=== PATIENT | male | born 1945 | race Caucasian/White ===

== ENCOUNTER 2018-01-16 10:10 | Emergency (ER) | payer MEDICARE, BC ==
[2018-01-16] MEDS ORDERED: Labetalol 20 MG/4 ML Syringe IVPUSH ONE (10:43)
[2018-01-16 11:01] LABS: ANION GAP 17.1; CHLORIDE,CL 101 mmol/L (101-111); SODIUM,NA 136 mmol/L (135-145)
--- NOTE | 2018-01-16 11:40 | EDM.PDOC ---
ED HPI GENERAL MEDICAL PROBLEM - General Chief Complaint: Neurological Problem Stated Complaint: UNRESPONSIVE Time Seen by Provider: 01/16/18 10:20 - History of Present Illness INITIAL COMMENTS - FREE TEXT/NARRATIVE: Stroke code Yenni is a 72-year-old man who was rushed to the hospital today by his family, after he developed weakness at home. They state that just after 9:30 this morning, he suddenly told him that he was having trouble moving his left leg. He told them "I need to get to the hospital now". They were barely able to get him into the car because of his developing weakness. By the time they got even a few miles down the road, he was unable to speak with them, and was not responding to commands. They stated he was still looking around with his eyes open. As he arrived to the ER here, we had a very difficult time getting him out of the car, he was not able to follow commands, we had to basically team lift him from the car seat. He is spontaneously moving his left arm and leg, but not moving his right side whatsoever. As we got him onto a gurney, we got him directly to the CT scanner for a noncontrast CT of the head. After getting him back down to the ER, initial neuro evaluation shows that he is unable to follow commands. He is able to track me with his eyes towards the left side but really not towards the right side whatsoever. He does have spontaneous movements of his left arm and leg, but no movement of his right arm and leg. Initial vital signs were stable, with a heart rate of 85, and a blood pressure 192/102. Sylvain Lauren was activated for stroke code. They were able to get me into contact with an on-call neurologist at [facility] in [place] immediately. After I relayed his exam to the neurologist, neurologist indicated that we need to get his blood pressure under 185 systolically in order to make him candidate for TPA administration. He was therefore given 5 mg of IV labetalol, which lowered his systolic blood pressure to 174. TPA bolus dose was then given, and the rate run at weight-based appropriate dose. He was immediately then set up for transport via air ambulance from here to [facility] in [place]. As the ambulance was packaging him up to get him ready for transport, he began to be able to follow commands somewhat. He was able to squeeze nurse's hands with both his left and his right hand, right hand being much weaker than the left. He was able to smile when communicated with as he left. - Related Data Allergies Allergy/AdvReac Type Severity Reaction Status Date / Time No Known Allergies Allergy Verified 01/16/18 11:20 Home Meds: Home Meds Albuterol [Ventolin HFA] 2 puff INH DAILY PRN 01/16/18 [History] Past Medical History - Past Health History Medical/Surgical History: Denies Medical/Surgical History Social & Family History - Tobacco Use Smoking Status *Q: Never Smoker - Caffeine Use Caffeine Use: Reports: Soda - Recreational Drug Use Recreational Drug Use: No ED ROS GENERAL - Review of Systems Review Of Systems: Unable To Obtain ED EXAM, NEURO - Physical Exam Exam: See Below Text/Narrative:: Gen.:Yenni is a 72-year-old man who cannot communicate with me at this time but is in no signs of respiratory or cardiac distress Lungs: Clear to auscultation throughout Heart: Regular rate and rhythm, he does have an occasional PVC EKG shows normal sinus rhythm with a rate between 80 and 85, he has an occasional PVC every 5-6 beats, but there is no pattern to this Course - Vital Signs Last Recorded V/S: Last Vital Signs Temp 36.1 C 01/16/18 10:47 Pulse 82 01/16/18 10:47 Resp BP 180/82 H 01/16/18 10:47 Pulse Ox 100 01/16/18 10:47 - Orders/Labs/Meds Orders: Active Orders 24 hr Category Date Time Status EKG 12 Lead [EKG Documentation Completion] [RC] STAT Care 01/16/18 10:33 Active Head wo Cont [CT] Urgent Exams 01/16/18 10:23 Taken Labs: Laboratory Tests 01/16/18 01/16/18 01/16/18 Range/Units 10:25 10:29 10:29 WBC 4.7 L (5.0-10.0) 10^3/uL RBC 4.45 L (4.6-6.2) 10^6/uL Hgb 15.8 (14.0-18.0) g/dL Hct 43.6 (40.0-54.0) % MCV 98.0 (80-100) fL MCH 35.5 H (27.0-34.0) pg MCHC 36.2 H (33.0-35.0) g/dL Plt Count 147 L (150-450) 10^3/uL Neut % (Auto) 59.7 (42.2-75.2) % Lymph % (Auto) 24.4 (20.5-50.1) % [place] % (Auto) 14.0 H (2-8) % Eos % (Auto) 1.5 (1.0-3.0) % Baso % (Auto) 0.4 (0.0-1.0) % PT 10.1 (9.0-12.0) SEC INR 1.0 (0.9-1.2) Sodium (135-145) mmol/L Potassium (3.6-5.0) mmol/L Chloride (101-111) mmol/L Carbon Dioxide (21.0-31.0) mmol/L Anion Gap BUN (7-18) mg/dL Creatinine (0.6-1.3) mg/dL Est Cr Clr Drug Dosing Estimated GFR (MDRD) BUN/Creatinine Ratio Glucose (74-105) mg/dL POC Glucose 112 H (83-110) mg/dl Calcium (8.4-10.2) mg/dl Total Bilirubin (0.2-1.0) mg/dL AST (10-42) IU/L ALT (10-60) IU/L Alkaline Phosphatase (42-121) IU/L Total Protein (6.7-8.2) g/dl Albumin (3.2-5.5) g/dl Globulin Albumin/Globulin Ratio Urine Color (YELLOW) Urine Appearance (CLEAR) Urine pH (5.0-9.0) Ur Specific [place] (1.005-1.030) Urine Protein (NEGATIVE) Urine Glucose (UA) (NEGATIVE) Urine Ketones (NEGATIVE) Urine Occult Blood (NEGATIVE) Urine Nitrite (NEGATIVE) Urine Bilirubin (NEGATIVE) Urine Urobilinogen (0.2-1.0) mg/dL Ur Leukocyte Esterase (NEGATIVE) Urine RBC /HPF Urine WBC (0-5/HPF) /HPF Ur Epithelial Cells /HPF Urine Mucus /LPF 01/16/18 01/16/18 Range/Units 10:29 10:38 WBC (5.0-10.0) 10^3/uL RBC (4.6-6.2) 10^6/uL Hgb (14.0-18.0) g/dL Hct (40.0-54.0) % MCV (80-100) fL MCH (27.0-34.0) pg MCHC (33.0-35.0) g/dL Plt Count (150-450) 10^3/uL Neut % (Auto) (42.2-75.2) % Lymph % (Auto) (20.5-50.1) % [place] % (Auto) (2-8) % Eos % (Auto) (1.0-3.0) % Baso % (Auto) (0.0-1.0) % PT (9.0-12.0) SEC INR (0.9-1.2) Sodium 136 (135-145) mmol/L Potassium 4.1 (3.6-5.0) mmol/L Chloride 101 (101-111) mmol/L Carbon Dioxide 22.0 (21.0-31.0) mmol/L Anion Gap 17.1 BUN 19 H (7-18) mg/dL Creatinine 1.1 (0.6-1.3) mg/dL Est Cr Clr Drug Dosing TNP Estimated GFR (MDRD) > 60 BUN/Creatinine Ratio 17.27 Glucose 129 H (74-105) mg/dL POC Glucose (83-110) mg/dl Calcium 9.1 (8.4-10.2) mg/dl Total Bilirubin 2.4 H (0.2-1.0) mg/dL AST 46 H (10-42) IU/L ALT 46 (10-60) IU/L Alkaline Phosphatase 56 (42-121) IU/L Total Protein 6.8 (6.7-8.2) g/dl Albumin 4.3 (3.2-5.5) g/dl Globulin 2.5 Albumin/Globulin Ratio 1.72 Urine Color Dark yellow (YELLOW) Urine Appearance Slightly cloudy (CLEAR) Urine pH 7.0 (5.0-9.0) Ur Specific [place] 1.015 (1.005-1.030) Urine Protein 30 H (NEGATIVE) Urine Glucose (UA) Negative (NEGATIVE) Urine Ketones Negative (NEGATIVE) Urine Occult Blood Trace-intact H (NEGATIVE) Urine Nitrite Negative (NEGATIVE) Urine Bilirubin Negative (NEGATIVE) Urine Urobilinogen 0.2 (0.2-1.0) mg/dL Ur Leukocyte Esterase Negative (NEGATIVE) Urine RBC 5-10 H /HPF Urine WBC 5-10 H (0-5/HPF) /HPF Ur Epithelial Cells Few /HPF Urine Mucus Few H /LPF Departure - Departure Time of Disposition: 11:30 Disposition: DC/Tfer to Acute Hospital 02 Condition: Fair Clinical Impression: Stroke Qualifiers: CVA mechanism: unspecified Qualified Code(s): I63.9 - Cerebral infarction, unspecified - Discharge Information Referrals: Yojana Le [facility] [Primary Care Provider] - - Problem List & Annotations (1) Stroke SNOMED Code(s): 922325457 Code(s): I63.9 - CEREBRAL INFARCTION, UNSPECIFIED Status: Acute Current Visit: Yes Annotation/Comment:: Severe stroke, with complete hemiplegia, and inability to follow commands, status post TPA administration Qualifiers: CVA mechanism: unspecified Qualified Code(s): I63.9 - Cerebral infarction, unspecified - My Orders Last 24 Hours: My Active Orders 01/16/18 10:23 Head wo Cont [CT] Urgent 01/16/18 10:33 EKG 12 Lead [EKG Documentation Completion] [RC] STAT - Assessment/Plan Last 24 Hours: My Active Orders 01/16/18 10:23 Head wo Cont [CT] Urgent 01/16/18 10:33 EKG 12 Lead [EKG Documentation Completion] [RC] STAT
[2018-01-16 13:19] VITALS: BP 184/110
--- NOTE | 2018-01-17 10:29 | EKG ---
01/16/2018- ALFREDO BELLAMY - This is a standard 12-lead EKG showing normal sinus rhythm, first-degree AV block, old anterolateral infarct. No significant ST-T changes. [facility] /[id number]
== END 2018-01-16 11:30 ==
LOC: DL.ED 10:10
DX: I63.9 Cerebral infarction, unspecified (principal); Z79.899 Other long term (current) drug therapy
CPT/HCPCS: 36415; 70450; 80053; 81001; 82962; 85025; 85610; 93005; 93010; 96365; 96375; 99285; J2997; J3490; 99284

== ENCOUNTER 2018-03-22 10:08 | Observation (INO) | payer MEDICARE, BC ==
--- NOTE | 2018-03-22 10:35 | EDM.PDOC ---
ED HPI GENERAL MEDICAL PROBLEM - General Chief Complaint: Respiratory Problem Stated Complaint: IN BY AMBULANCE Time Seen by Provider: 03/22/18 10:10 Source of Information: Reports: Patient, EMS, EMS Notes Reviewed, Provider (FRANK Rodriguez), RN, RN Notes Reviewed History Limitations: Reports: No Limitations - History of Present Illness INITIAL COMMENTS - FREE TEXT/NARRATIVE: Pt presents to the ER per [facility] with c/o increasing SOB. Patient states he had CABG x5 on 03-10-18. In the past few days he has grown increasingly more SOB and has developed swelling in the left lower leg, where grafting also took place. 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 Patient denies any further complaints including chest pain, N/V/D, fever, chills. Onset: Gradual Duration: Getting Worse, Heavy Location: Reports: Chest Associated Symptoms: Reports: Shortness of Breath midsternal Pain Score (Numeric/FACES): 5 - Related Data Allergies Allergy/AdvReac Type Severity Reaction Status Date / Time No Known Allergies Allergy Verified 03/22/18 17:57 Home Meds: Home Meds Albuterol [Ventolin HFA] 2 puff INH DAILY PRN 01/16/18 [History] Ascorbic Acid [Vitamin C] 1,000 mg PO BID 03/22/18 [History] Aspirin 81 mg PO DAILY 03/22/18 [History] Carvedilol 6.25 mg PO BID 03/22/18 [History] Cholecalciferol (Vitamin D3) [Vitamin D3] 1,000 units PO BID 03/22/18 [History] Docusate Sodium [Dok] 250 mg PO DAILY 03/22/18 [History] Fluticasone/Vilanterol [Breo Ellipta 200-25 MCG Inhalation Kit] 1 puff INH DAILY 03/22/18 [History] Furosemide [Lasix] 20 mg PO DAILY PRN tablet 03/22/18 [Rx] Hydrocodone/Acetaminophen [Hydrocodon-Acetaminophen 5-325] 1 tab PO Q4H PRN [History] Omeprazole 20 mg PO DAILY 03/22/18 [History] Rivaroxaban [Xarelto] 20 mg PO BEDTIME 03/22/18 [History] Tamsulosin HCl 0.4 mg PO DAILY 03/22/18 [History] atorvaSTATin [Lipitor] 40 mg PO DAILY 03/22/18 [History] Past Medical History - Past Health History Medical/Surgical History: Denies Medical/Surgical History Social & Family History - Caffeine Use Caffeine Use: Reports: Soda ED ROS GENERAL - Review of Systems Review Of Systems: ROS reveals no pertinent complaints other than HPI. ED EXAM, GENERAL - Physical Exam Exam: See Below Exam Limited By: No Limitations General Appearance: Alert, WD/WN, Mild Distress Eye Exam: Bilateral Eye: EOMI, Normal Inspection Ears: Normal External Exam, Hearing Grossly Normal Nose: Normal Inspection Throat/Mouth: Normal Inspection, Normal Voice, No Airway Compromise Head: Atraumatic, Normocephalic Neck: Normal Inspection, Supple, Non-Tender, Full Range of Motion Respiratory/Chest: Other (Lungs clear bilaterally except few fine crackles to the left base, mid sternal chest incision healing, but chest is tender to touch yet. Patient is having some mild respiratory distress, O2 sats 99% on 2L NC. ) Cardiovascular: Normal Peripheral Pulses, Regular Rate, Rhythm, No Gallop, No JVD, No Murmur, No Rub Peripheral Pulses: 1+: Dorsalis Pedis (L), Dorsalis Pedis (R), 2+: Radial (L), Radial (R) GI/Abdominal: Normal Bowel Sounds, Soft, Non-Tender, No Organomegaly, No Abnormal Bruit, Distended (Male) Exam: Deferred Rectal (Males) Exam: Deferred Back Exam: Normal Inspection, Decreased Range of Motion Extremities: Pedal Edema (left +2, right +1), Limited Range of Motion Neurological: Alert, Oriented, CN II-XII Intact, Normal Cognition, Normal Reflexes, No Motor/Sensory Deficits Psychiatric: Normal Affect, Normal Mood Skin Exam: Warm, Dry, Intact, Normal Color, No Rash Lymphatic: No Adenopathy EKG INTERPRETATION EKG Date: 03/22/18 Time: 10:10 Rhythm: Other (sinus tachycardia, first degree AV block) Rate (Beats/Min): 100 QRS: Wide Comparison: Change From Previous EKG Course - Vital Signs Last Recorded V/S: Last Vital Signs Temp 98.1 F 03/22/18 17:47 Pulse 99 05/22/18 17:47 Resp 20 03/22/18 17:47 BP 99/56 L 03/22/18 17:47 Pulse Ox 99 03/22/18 17:47 - Orders/Labs/Meds Orders: Active Orders 24 hr Category Date Time Status Patient Status [ADT] Routine ADT 03/22/18 19:00 Active EKG 12 Lead [EKG Documentation Completion] [RC] STAT Care 03/22/18 10:18 Active Oxygen Therapy [RC] PRN Care 03/22/18 19:00 Active Peripheral IV Care [RC] . DIRECTED Care 03/22/18 19:01 Active Up With Assistance [RC] ASDIRECTED Care 03/22/18 18:59 Active VTE/DVT Education [RC] PER UNIT ROUTINE Care 03/22/18 19:00 Active Vital Signs [RC] Q4H Care 03/22/18 19:00 Active Late Tray [DIET] Routine Diet 03/22/18 12:09 Active UA W/MICROSCOPIC [URIN] Stat Lab 03/22/18 15:18 Ordered Peripheral IV Insertion Adult [OM.PC] Routine Oth 03/22/18 18:59 Ordered Saline Lock Insert [OM.PC] Routine Oth 03/22/18 18:59 Ordered Resuscitation Status Routine Resus Stat 03/22/18 18:59 Ordered Labs: Laboratory Tests 03/22/18 03/22/18 03/22/18 Range/Units 10:33 10:33 15:18 WBC 8.8 (5.0-10.0) 10^3/uL RBC 3.54 L (4.6-6.2) 10^6/uL Hgb 11.1 L D (14.0-18.0) g/dL Hct 33.1 L (40.0-54.0) % MCV 93.5 D (80-100) fL MCH 31.4 (27.0-34.0) pg MCHC 33.5 (33.0-35.0) g/dL Plt Count 370 D (150-450) 10^3/uL Neut % (Auto) 75.1 (42.2-75.2) % Lymph % (Auto) 8.8 L (20.5-50.1) % [place] % (Auto) 11.9 H (2-8) % Eos % (Auto) 4.0 H (1.0-3.0) % Baso % (Auto) 0.2 (0.0-1.0) % Sodium 136 (135-145) mmol/L Potassium 4.4 (3.6-5.0) mmol/L Chloride 98 L (101-111) mmol/L Carbon Dioxide 27.0 (21.0-31.0) mmol/L Anion Gap 15.4 BUN 19 H (7-18) mg/dL Creatinine 1.3 (0.6-1.3) mg/dL Est Cr Clr Drug Dosing 49.43 mL/min Estimated GFR (MDRD) 55 BUN/Creatinine Ratio 14.61 Glucose 119 H (74-105) mg/dL Calcium 9.2 (8.4-10.2) mg/dl Total Bilirubin 1.4 H (0.2-1.0) mg/dL AST 23 (10-42) IU/L ALT 14 (10-60) IU/L Alkaline Phosphatase 66 (42-121) IU/L Troponin I < 0.02 (0.00-0.02) ng/ml B-Natriuretic Peptide 520 H (0-100) pg/ml Total Protein 7.0 (6.7-8.2) g/dl Albumin 3.8 (3.2-5.5) g/dl Globulin 3.2 Albumin/Globulin Ratio 1.19 Urine Color Yellow (YELLOW) Urine Appearance Clear (CLEAR) Urine pH 6.0 (5.0-9.0) Ur Specific [place] 1.015 (1.005-1.030) Urine Protein Negative (NEGATIVE) Urine Glucose (UA) Negative (NEGATIVE) Urine Ketones Negative (NEGATIVE) Urine Occult Blood Negative (NEGATIVE) Urine Nitrite Negative (NEGATIVE) Urine Bilirubin Negative (NEGATIVE) Urine Urobilinogen 0.2 (0.2-1.0) mg/dL Ur Leukocyte Esterase Negative (NEGATIVE) Urine RBC Not seen /HPF Urine WBC 0-5 (0-5/HPF) /HPF Ur Epithelial Cells Not seen /HPF Urine Bacteria Rare (0-FEW/HPF) /HPF Hyaline Casts Few H /LPF Urine Mucus Few H /LPF Meds: Medications Discontinued Medications Generic Name Dose Route Start Last Admin Trade Name Freq PRN Reason Stop Dose Admin Acetaminophen 650 mg 03/22/18 11:31 03/22/18 11:40 Tylenol PO 03/22/18 11:32 650 mg NOW ONE Administration Hydrocodone Bitart/Acetaminophen 1 tab 03/22/18 19:11 [place] 325-5 Mg PO Q4H PRN Pain Albuterol 0 gm 03/22/18 19:11 Proventil Hfa INH DAILY PRN Wheezing Ascorbic Acid 1,000 mg 03/22/18 21:00 Vitamin C PO BID [facility] Aspirin 81 mg 03/23/18 09:00 Aspirin PO DAILY [facility] Atorvastatin Calcium 40 mg 03/23/18 09:00 Lipitor PO DAILY [facility] Carvedilol 6.25 mg 03/22/18 21:00 Coreg PO BID [facility] Cholecalciferol 1,000 units 03/22/18 21:00 Vitamin D3 PO BID [facility] Furosemide 80 mg 03/22/18 13:27 03/22/18 14:45 Lasix IVPUSH 03/22/18 13:28 80 mg NOW ONE Administration Furosemide 20 mg 03/22/18 19:11 Lasix PO DAILY PRN Edema Heparin Sodium (Porcine) 5,000 units 03/22/18 22:00 Heparin Sodium SUBCUT Q8HR [facility] Iopamidol 100 ml 03/22/18 17:00 Isovue-300 (61%) IVPUSH 03/22/18 17:01 ONETIME ONE Iopamidol 100 ml 03/22/18 17:53 03/22/18 17:53 Isovue-370 (76%) IVPUSH 03/22/18 17:54 76 ml ONETIME ONE Administration Non-Formulary Medication 250 mg 03/23/18 09:00 Docusate Sodium [Dok] PO DAILY [facility] Non-Formulary Medication 1 puff 03/23/18 09:00 Fluticasone/Vilanterol [Breo Ellipta 200-25 Mcg Inhalation Kit] INH DAILY [facility] Omeprazole 20 mg 03/23/18 09:00 Omeprazole PO DAILY [facility] Rivaroxaban 20 mg 03/22/18 21:00 Xarelto PO BEDTIME [facility] Sodium Chloride 10 ml 03/22/18 18:59 Saline Flush FLUSH ASDIRECTED PRN Keep Vein Open Tamsulosin HCl 0.4 mg 03/23/18 09:00 Flomax PO DAILY [facility] - Radiology Interpretation Free Text/Narrative:: chest xray: Bibasilar dependent subpulmonic pleural effusions (accumulating on the right) Abnormally enlarged cardiac silhouette pericardial effusion? Cardiomyopathy? See rad report Departure - Departure Time of Disposition: 17:15 Disposition: Admitted As Inpatient 68 Clinical Impression: Pleural effusion, Shortness of breath - Discharge Information - My Orders Last 24 Hours: My Active Orders 03/22/18 10:18 EKG 12 Lead [EKG Documentation Completion] [RC] STAT 03/22/18 12:09 Late Tray [DIET] Routine 03/22/18 15:18 UA W/MICROSCOPIC [URIN] Stat - Assessment/Plan Last 24 Hours: My Active Orders 03/22/18 10:18 EKG 12 Lead [EKG Documentation Completion] [RC] STAT 03/22/18 12:09 Late Tray [DIET] Routine 03/22/18 15:18 UA W/MICROSCOPIC [URIN] Stat
--- NOTE | 2018-03-22 11:02 | CR ---
Clinical history: 72-year-old male sarcoidosis and chest pain stretching shortness of breath (cardiac bypass surgery 10 days ago both breasts. Interpretation: Abnormal exam. Bibasilar dependent subpulmonic pleural effusions (accumulating on the right) this patient with love otomy wires and abnormally enlarged cardiac silhouette (pericardial effusion? Cardiomyopathy?). No cephalization of vascular flow or signs of alveolar edema. No new lung mass or focal lobar infiltrate. No pneumothorax.
[2018-03-22 11:09] LABS: CHLORIDE,CL 98 mmol/L (101-111); SODIUM,NA 136 mmol/L (135-145)
[2018-03-22] MEDS ORDERED: Acetaminophen 325 MG Tab PO ONE (11:31)
[2018-03-22] MEDS ORDERED: Furosemide 40 MG/4 ML VIAL IVPUSH ONE (13:27)
[2018-03-22] MEDS ORDERED: Iopamidol 612 MG/ML 100 ML Bottle IVPUSH ONE (17:00)
[2018-03-22] MEDS ORDERED: Iopamidol 755 Mg/ML 100 ML Bottle IVPUSH ONE (17:53)
[2018-03-22 18:29] VITALS: BP 99/56
[2018-03-22] MEDS ORDERED: Sodium Chloride 0.9% 10 ML Syringe FLUSH PRN (18:59)
[2018-03-22] MEDS ORDERED: Acetaminophen/HYDROcodone 325-5 MG Tab PO PRN (19:11)
[2018-03-22] MEDS ORDERED: Furosemide 20 MG Tab PO PRN (19:11)
[2018-03-22] MEDS ORDERED: Albuterol 6.7 GM Inhaler INH PRN (19:11)
--- NOTE | 2018-03-22 19:19 | PCM.HP ---
H&P History of Present Illness - General Date of Service: 03/22/18 Admit Problem/Dx: Admission Diagnosis/Problem Admission Diagnosis/Problem Shortness of breath Source of Information: Patient - History of Present Illness Initial Comments - Free Text/Narative: The patient is a 72-year-old gentleman who presented the with shortness of breath The patient has a history of prior stroke, DVT, atrial fibrillation, recent bypass surgery about 10 days ago. The patient has been experiencing increasing shortness of breath for about 3-4 days. This is associated with leg swelling. No cough, no fever. - Related Data Allergies/Adverse Reactions: Allergies Allergy/AdvReac Type Severity Reaction Status Date / Time No Known Allergies Allergy Verified 03/22/18 17:57 Home Medications: Home Meds Albuterol [Ventolin HFA] 2 puff INH DAILY PRN 01/16/18 [History] Ascorbic Acid [Vitamin C] 1,000 mg PO BID 03/22/18 [History] Aspirin 81 mg PO DAILY 03/22/18 [History] Carvedilol 6.25 mg PO BID 03/22/18 [History] Cholecalciferol (Vitamin D3) [Vitamin D3] 1,000 units PO BID 03/22/18 [History] Docusate Sodium [Dok] 250 mg PO DAILY 03/22/18 [History] Fluticasone/Vilanterol [Breo Ellipta 200-25 MCG Inhalation Kit] 1 puff INH DAILY 03/22/18 [History] Furosemide [Lasix] 20 mg PO DAILY PRN 03/22/18 [History] Hydrocodone/Acetaminophen [Hydrocodon-Acetaminophen 5-325] 1 tab PO Q4H PRN [History] Omeprazole 20 mg PO DAILY 03/22/18 [History] Rivaroxaban [Xarelto] 20 mg PO BEDTIME 03/22/18 [History] Tamsulosin HCl 0.4 mg PO DAILY 03/22/18 [History] atorvaSTATin [Lipitor] 40 mg PO DAILY 03/22/18 [History] Past Medical History - Past Health History Medical/Surgical History: Denies Medical/Surgical History HEENT History: Reports: None Cardiovascular History: Reports: Blood Clots/VTE/DVT, CAD, Cardiomyopathy, Heart Failure, Hypertension, [place] Respiratory History: Reports: PE, Sleep Apnea, Other (See Below) Other Respiratory History: Sarcoidosis Gastrointestinal History: Reports: GERD Genitourinary History: Reports: BPH Musculoskeletal History: Reports: None Neurological History: Reports: CVA, Neuropathy, Peripheral Psychiatric History: Reports: Anxiety, Depression Endocrine/Metabolic History: Reports: None Hematologic History: Reports: None Immunologic History: Reports: None Oncologic (Cancer) History: Reports: None Dermatologic History: Reports: None - Infectious Disease History Infectious Disease History: Reports: None - Past Surgical History HEENT Surgical History: Reports: None Cardiovascular Surgical History: Reports: Coronary Artery Bypass Respiratory Surgical History: Reports: None GI Surgical History: Reports: None Male Surgical History: Reports: None Endocrine Surgical History: Reports: None Neurological Surgical History: Reports: None Musculoskeletal Surgical History: Reports: None Oncologic Surgical History: Reports: None Social & Family History - Family History Family Medical History: Noncontributory - Tobacco Use Smoking Status *Q: Never Smoker Second Hand Smoke Exposure: No - Caffeine Use Caffeine Use: Reports: Soda - Recreational Drug Use Recreational Drug Use: No H&P Review of Systems - Review of Systems: Review Of Systems: See Below General: Denies: Fever, Chills Pulmonary: Reports: Shortness of Breath. Denies: Wheezing Cardiovascular: Denies: Chest Pain, Palpitations Psychiatric: Denies: Confusion Exam - Exam Exam: See Below - Vital Signs Vital Signs: Last Vital Signs Temp 36.7 C 03/22/18 17:47 Pulse 99 03/22/18 17:47 Resp 20 03/22/18 17:47 BP 99/56 L 03/22/18 17:47 Pulse Ox 99 03/22/18 17:47 Weight: 98.43 kg - Exam General: Alert, Oriented Lungs: Clear to Auscultation, Normal Respiratory Effort Cardiovascular: Regular Rate, Regular Rhythm Extremities: Pedal Edema (Bilateral 1-2+) - Patient Data Lab Results Last 24 hrs: Laboratory Results - last 24 hr 03/22/18 03/22/18 03/22/18 Range/Units 10:33 10:33 15:18 WBC 8.8 (5.0-10.0) 10^3/uL RBC 3.54 L (4.6-6.2) 10^6/uL Hgb 11.1 L D (14.0-18.0) g/dL Hct 33.1 L (40.0-54.0) % MCV 93.5 D (80-100) fL MCH 31.4 (27.0-34.0) pg MCHC 33.5 (33.0-35.0) g/dL Plt Count 370 D (150-450) 10^3/uL Neut % (Auto) 75.1 (42.2-75.2) % Lymph % (Auto) 8.8 L (20.5-50.1) % [place] % (Auto) 11.9 H (2-8) % Eos % (Auto) 4.0 H (1.0-3.0) % Baso % (Auto) 0.2 (0.0-1.0) % Sodium 136 (135-145) mmol/L Potassium 4.4 (3.6-5.0) mmol/L Chloride 98 L (101-111) mmol/L Carbon Dioxide 27.0 (21.0-31.0) mmol/L Anion Gap 15.4 BUN 19 H (7-18) mg/dL Creatinine 1.3 (0.6-1.3) mg/dL Est Cr Clr Drug Dosing 49.43 mL/min Estimated GFR (MDRD) 55 BUN/Creatinine Ratio 14.61 Glucose 119 H (74-105) mg/dL Calcium 9.2 (8.4-10.2) mg/dl Total Bilirubin 1.4 H (0.2-1.0) mg/dL AST 23 (10-42) IU/L ALT 14 (10-60) IU/L Alkaline Phosphatase 66 (42-121) IU/L Troponin I < 0.02 (0.00-0.02) ng/ml B-Natriuretic Peptide 520 H (0-100) pg/ml Total Protein 7.0 (6.7-8.2) g/dl Albumin 3.8 (3.2-5.5) g/dl Globulin 3.2 Albumin/Globulin Ratio 1.19 Urine Color Yellow (YELLOW) Urine Appearance Clear (CLEAR) Urine pH 6.0 (5.0-9.0) Ur Specific [place] 1.015 (1.005-1.030) Urine Protein Negative (NEGATIVE) Urine Glucose (UA) Negative (NEGATIVE) Urine Ketones Negative (NEGATIVE) Urine Occult Blood Negative (NEGATIVE) Urine Nitrite Negative (NEGATIVE) Urine Bilirubin Negative (NEGATIVE) Urine Urobilinogen 0.2 (0.2-1.0) mg/dL Ur Leukocyte Esterase Negative (NEGATIVE) Urine RBC Not seen /HPF Urine WBC 0-5 (0-5/HPF) /HPF Ur Epithelial Cells Not seen /HPF Urine Bacteria Rare (0-FEW/HPF) /HPF Hyaline Casts Few H /LPF Urine Mucus Few H /LPF Result Diagrams: 03/22/18 10:33 03/22/18 10:33 Problem List Initiated/Reviewed/Updated: Yes Orders Last 24hrs: Active Orders 24 hr Category Date Time Status Patient Status [ADT] Routine ADT 03/22/18 19:00 Ordered EKG 12 Lead [EKG Documentation Completion] [RC] STAT Care 03/22/18 10:18 Active Oxygen Therapy [RC] PRN Care 03/22/18 19:00 Ordered Peripheral IV Care [RC] . DIRECTED Care 03/22/18 19:01 Ordered Up With Assistance [RC] ASDIRECTED Care 03/22/18 18:59 Ordered VTE/DVT Education [RC] PER UNIT ROUTINE Care 03/22/18 19:00 Ordered Vital Signs [RC] Q4H Care 03/22/18 19:00 Ordered Late Tray [DIET] Routine Diet 03/22/18 12:09 Active Regular Diet [DIET] Diet 03/22/18 Breakfast Ordered UA W/MICROSCOPIC [URIN] Stat Lab 03/22/18 15:18 Ordered Acetaminophen/HYDROcodone [[place] 325-5 MG] Med 03/22/18 19:11 Ordered 1 tab PO Q4H PRN Albuterol [Proventil HFA] Med 03/22/18 19:11 Ordered 2 puff INH DAILY PRN Ascorbic Acid [Vitamin C] Med 03/22/18 21:00 Ordered 1,000 mg PO BID Aspirin Med 03/23/18 09:00 Ordered 81 mg PO DAILY Carvedilol [Coreg] Med 03/22/18 21:00 Ordered 6.25 mg PO BID Cholecalciferol (Vitamin D3) [Vitamin D3] Med 03/22/18 21:00 Ordered 1,000 units PO BID Docusate Sodium [Dok] Med 03/23/18 09:00 Ordered 250 mg PO DAILY Fluticasone/Vilanterol [Breo Ellipta 200-25 MCG Med 03/23/18 09:00 Ordered Inhalation Kit] 1 puff INH DAILY Furosemide [Lasix] Med 03/22/18 19:11 Ordered 20 mg PO DAILY PRN Heparin Sodium Med 03/22/18 22:00 Ordered 5,000 units SUBCUT Q8HR Omeprazole Med 03/23/18 09:00 Ordered 20 mg PO DAILY Rivaroxaban [Xarelto] Med 03/22/18 21:00 Ordered 20 mg PO BEDTIME Sodium Chloride 0.9% [Saline Flush] Med 03/22/18 18:59 Ordered 10 ml FLUSH ASDIRECTED PRN Tamsulosin [Flomax] Med 03/23/18 09:00 Ordered 0.4 mg PO DAILY atorvaSTATin [Lipitor] Med 03/23/18 09:00 Ordered 40 mg PO DAILY Peripheral IV Insertion Adult [OM.PC] Routine Oth 03/22/18 18:59 Ordered Saline Lock Insert [OM.PC] Routine Oth 03/22/18 18:59 Ordered Resuscitation Status Routine Resus Stat 03/22/18 18:59 Ordered Medication Orders Heparin Sodium (Porcine) (Heparin Sodium) 5,000 units SUBCUT Q8HR JOHANNA Sodium Chloride (Saline Flush) 10 ml FLUSH ASDIRECTED PRN PRN Reason: Keep Vein Open Assessment/Plan Comment:: 72-year-old gentleman who presented with shortness of breath. On chest x-ray the patient appears to have from small effusion, enlarged pericardium. Concern is significant pericardial effusion. We'll admit the patient for observation, further workup. We will obtain CT of the chest. On its on telemetry, repeat troponins. Treat the patient for acute congestive heart failure. The patient received IV Lasix.
--- NOTE | 2018-03-22 19:29 | PCM.DCSUM1 ---
Discharge Summary - Hospital Course Free Text/Narrative:: 72-year-old gentleman who presented with shortness of breath. On chest x-ray the patient appears to have from small effusion, enlarged pericardium. Concern is significant pericardial effusion. CT showed no pulmonary embolism, it did show moderate to large pericardial effusion. I believe the patient would benefit from obtaining echocardiogram to evaluate for cardiac compromise with a moderate to large effusion. Echocardiogram is not available in this facility. Contacted sent for [facility] in [place]. We will transfer the patient by ambulance. Treat the patient for acute congestive heart failure. The patient received IV Lasix. - Discharge Data Discharge Date: 03/22/18 Discharge Disposition: DC/Tfer to Acute Hospital 02 Condition: Good - Patient Instructions Diet: Heart Healthy Diet Activity: As Tolerated - Discharge Plan Home Medications: Home Meds Albuterol [Ventolin HFA] 2 puff INH DAILY PRN 01/16/18 [History] Ascorbic Acid [Vitamin C] 1,000 mg PO BID 03/22/18 [History] Aspirin 81 mg PO DAILY 03/22/18 [History] Carvedilol 6.25 mg PO BID 03/22/18 [History] Cholecalciferol (Vitamin D3) [Vitamin D3] 1,000 units PO BID 03/22/18 [History] Docusate Sodium [Dok] 250 mg PO DAILY 03/22/18 [History] Fluticasone/Vilanterol [Breo Ellipta 200-25 MCG Inhalation Kit] 1 puff INH DAILY 03/22/18 [History] Furosemide [Lasix] 20 mg PO DAILY PRN tablet 03/22/18 [Rx] Hydrocodone/Acetaminophen [Hydrocodon-Acetaminophen 5-325] 1 tab PO Q4H PRN [History] Omeprazole 20 mg PO DAILY 03/22/18 [History] Rivaroxaban [Xarelto] 20 mg PO BEDTIME 03/22/18 [History] Tamsulosin HCl 0.4 mg PO DAILY 03/22/18 [History] atorvaSTATin [Lipitor] 40 mg PO DAILY 03/22/18 [History] - Discharge Summary/Plan Comment DC Time >30 min.: No - General Info Date of Service: 03/22/18 - Review of Systems General: Denies: Fever Pulmonary: Reports: Shortness of Breath Cardiovascular: Denies: Chest Pain Neurological: Denies: Confusion - Patient Data Vitals - Most Recent: Last Vital Signs Temp 36.7 C 03/22/18 17:47 Pulse 99 03/22/18 17:47 Resp 20 03/22/18 17:47 BP 99/56 L 03/22/18 17:47 Pulse Ox 99 03/22/18 17:47 Weight - Most Recent: 98.43 kg I&O - Last 24 hours: Intake & Output 03/22/18 03/22/18 03/22/18 06:59 14:59 22:59 Intake Total 555 Output Total 800 Balance -245 Lab Results - Last 24 hrs: Laboratory Results - last 24 hr 03/22/18 03/22/18 03/22/18 Range/Units 10:33 10:33 15:18 WBC 8.8 (5.0-10.0) 10^3/uL RBC 3.54 L (4.6-6.2) 10^6/uL Hgb 11.1 L D (14.0-18.0) g/dL Hct 33.1 L (40.0-54.0) % MCV 93.5 D (80-100) fL MCH 31.4 (27.0-34.0) pg MCHC 33.5 (33.0-35.0) g/dL Plt Count 370 D (150-450) 10^3/uL Neut % (Auto) 75.1 (42.2-75.2) % Lymph % (Auto) 8.8 L (20.5-50.1) % [place] % (Auto) 11.9 H (2-8) % Eos % (Auto) 4.0 H (1.0-3.0) % Baso % (Auto) 0.2 (0.0-1.0) % Sodium 136 (135-145) mmol/L Potassium 4.4 (3.6-5.0) mmol/L Chloride 98 L (101-111) mmol/L Carbon Dioxide 27.0 (21.0-31.0) mmol/L Anion Gap 15.4 BUN 19 H (7-18) mg/dL Creatinine 1.3 (0.6-1.3) mg/dL Est Cr Clr Drug Dosing 49.43 mL/min Estimated GFR (MDRD) 55 BUN/Creatinine Ratio 14.61 Glucose 119 H (74-105) mg/dL Calcium 9.2 (8.4-10.2) mg/dl Total Bilirubin 1.4 H (0.2-1.0) mg/dL AST 23 (10-42) IU/L ALT 14 (10-60) IU/L Alkaline Phosphatase 66 (42-121) IU/L Troponin I < 0.02 (0.00-0.02) ng/ml B-Natriuretic Peptide 520 H (0-100) pg/ml Total Protein 7.0 (6.7-8.2) g/dl Albumin 3.8 (3.2-5.5) g/dl Globulin 3.2 Albumin/Globulin Ratio 1.19 Urine Color Yellow (YELLOW) Urine Appearance Clear (CLEAR) Urine pH 6.0 (5.0-9.0) Ur Specific [place] 1.015 (1.005-1.030) Urine Protein Negative (NEGATIVE) Urine Glucose (UA) Negative (NEGATIVE) Urine Ketones Negative (NEGATIVE) Urine Occult Blood Negative (NEGATIVE) Urine Nitrite Negative (NEGATIVE) Urine Bilirubin Negative (NEGATIVE) Urine Urobilinogen 0.2 (0.2-1.0) mg/dL Ur Leukocyte Esterase Negative (NEGATIVE) Urine RBC Not seen /HPF Urine WBC 0-5 (0-5/HPF) /HPF Ur Epithelial Cells Not seen /HPF Urine Bacteria Rare (0-FEW/HPF) /HPF Hyaline Casts Few H /LPF Urine Mucus Few H /LPF Med Orders - Current: Current Medications Hydrocodone Bitart/Acetaminophen ([place] 325-5 Mg) 1 tab PO Q4H PRN PRN Reason: Pain Albuterol (Proventil Hfa) 0 gm INH DAILY PRN PRN Reason: Wheezing Aspirin (Aspirin) 81 mg PO DAILY JOHANNA Carvedilol (Coreg) 6.25 mg PO BID JOHANNA Furosemide (Lasix) 20 mg PO DAILY PRN PRN Reason: Edema Heparin Sodium (Porcine) (Heparin Sodium) 5,000 units SUBCUT Q8HR [facility] Non-Formulary Medication (Ascorbic Acid [Vitamin C]) 1,000 mg PO BID [facility] Non-Formulary Medication (Atorvastatin [Lipitor]) 40 mg PO DAILY [facility] Non-Formulary Medication (Cholecalciferol (Vitamin D3) [Vitamin D3]) 1,000 units PO BID [facility] Non-Formulary Medication (Docusate Sodium [Dok]) 250 mg PO DAILY [facility] Non-Formulary Medication (Fluticasone/Vilanterol [Breo Ellipta 200-25 Mcg Inhalation Kit]) 1 puff INH DAILY [facility] Non-Formulary Medication (Rivaroxaban [Xarelto]) 20 mg PO BEDTIME JOHANNA Omeprazole (Omeprazole) 20 mg PO DAILY [facility] Sodium Chloride (Saline Flush) 10 ml FLUSH ASDIRECTED PRN PRN Reason: Keep Vein Open Tamsulosin HCl (Flomax) 0.4 mg PO DAILY JOHANNA Discontinued Medications Acetaminophen (Tylenol) 650 mg PO NOW ONE Stop: 03/22/18 11:32 Last Admin: 03/22/18 11:40 Dose: 650 mg Furosemide (Lasix) 80 mg IVPUSH NOW ONE Stop: 03/22/18 13:28 Last Admin: 03/22/18 14:45 Dose: 80 mg Iopamidol (Isovue-300 (61%)) 100 ml IVPUSH ONETIME ONE Stop: 03/22/18 17:01 Iopamidol (Isovue-370 (76%)) 100 ml IVPUSH ONETIME ONE Stop: 03/22/18 17:54 Last Admin: 03/22/18 17:53 Dose: 76 ml - Exam Quality Assessment: Reports: Supplemental Oxygen General: Reports: Alert, Oriented Neck: Reports: Supple Lungs: Reports: Clear to Auscultation, Normal Respiratory Effort Cardiovascular: Reports: Regular Rate, Regular Rhythm Extremities: Pedal Edema
[2018-03-22] MEDS ORDERED: Cholecalciferol (Vitamin D3) 400 Unit Tab PO SCH (21:00)
[2018-03-22] MEDS ORDERED: Carvedilol 6.25 MG Tab PO SCH (21:00)
[2018-03-22] MEDS ORDERED: Rivaroxaban 10 MG Tab PO SCH (21:00)
[2018-03-22] MEDS ORDERED: Ascorbic Acid 500 MG Tab PO SCH (21:00)
[2018-03-22] MEDS ORDERED: Heparin Sodium 5,000 Units/ML Vial SUBCUT SCH (22:00)
[2018-03-23] MEDS ORDERED: atorvaSTATin 20 MG Tab PO SCH (09:00)
[2018-03-23] MEDS ORDERED: Non-Formulary Medication 1 Each (Fluticasone/Vilanterol [Breo Ellipta 200-25 Mcg Inhalatio INH SCH (09:00)
[2018-03-23] MEDS ORDERED: Tamsulosin 0.4 MG Cap.ER PO SCH (09:00)
[2018-03-23] MEDS ORDERED: Aspirin 81 MG Tab.Chew PO SCH (09:00)
[2018-03-23] MEDS ORDERED: DOCUSATE SODIUM 250 MG PO SCH (09:00)
[2018-03-23] MEDS ORDERED: Omeprazole 20 MG Cap.CR PO SCH (09:00)
== END 2018-03-22 20:00 ==
LOC: DL.ED 10:08 → DL.MS 17:00 → UNDOADMOB 17:00 → DL.MS 19:00
PROVIDERS: ADMIT Internal Medicine; ATTEND Internal Medicine
DX: R06.02 Shortness of breath (principal); I11.0 Hypertensive heart disease with heart failure; I50.9 Heart failure, unspecified; I82.409 Acute embolism and thrombosis of unspecified deep veins of unspecified lower extremity; I48.91 Unspecified atrial fibrillation; K21.9 Gastro-esophageal reflux disease without esophagitis; I25.10 Atherosclerotic heart disease of native coronary artery without angina pectoris; F41.9 Anxiety disorder, unspecified; F31.9 Bipolar disorder, unspecified; Z86.73 Personal history of transient ischemic attack (TIA), and cerebral infarction without residual deficits; Z95.1 Presence of aortocoronary bypass graft; Z79.82 Long term (current) use of aspirin; Z79.899 Other long term (current) drug therapy
CPT/HCPCS: 36415; 71045; 71260; 80053; 81001; 83880; 84484; 85025; 93005; 93010; 96374; 99284; 99285; A9270; G0378; J1940; Q9967

== ENCOUNTER → 2019-04-10 | Outpatient (CLI) | payer MEDICARE, BC | LOC: DL.CLIN 14:30 | DX: B02.9 Zoster without complications (principal) | CPT/HCPCS: 99212 ==

== ENCOUNTER 2023-07-16 15:45 | Emergency (ER) | payer MEDICARE, BC ==
[2023-07-16] MEDS ORDERED: Tranexamic Acid 1,000 MG/10 ML Vial TOP ONE ×3 (16:03→17:30)
[2023-07-16 16:13] VITALS: BP 138/76; PULSE 88
[2023-07-16] MEDS ORDERED: Tranexamic Acid 1,000 MG/10 ML Vial ONE (16:39)
[2023-07-16] MEDS ORDERED: Sodium Chloride 0.9% 10 ML Syringe FLUSH PRN (16:42)
[2023-07-16 16:59] LABS: BASOPHILS PERCENT AUTO 0.3 % (0.0-1.0); EOSINOPHILS PERCENT AUTO 3.6 % (1.0-3.0); HEMATOCRIT 38.3 % (40.0-54.0); HEMOGLOBIN 13.3 g/dL (14.0-18.0); LYMPHOCYTES PERCENT AUTO 15.4 % (20.5-50.1); MEAN CORPUSCULAR HEMOGLOBIN 31.7 pg (27.0-34.0); MEAN CORPUSCULAR HGB CONC 34.7 g/dL (33.0-35.0); MEAN CORPUSCULAR VOLUME 91.4 fL (80-100); NEUTROPHILS PERCENT AUTO 67.7 % (42.2-75.2); PLATELET COUNT,PLT 220 10^3/uL (150-450); RED BLOOD CELL COUNT 4.19 10^6/uL (4.6-6.2); WHITE BLOOD CELL COUNT,WBC 6.3 10^3/uL (5.0-10.0)
[2023-07-16 17:16] LABS: INR 1.1 (0.9-1.2); PROTHROMBIN TIME 11.6 SEC (9.0-12.0); PTT,PARTIAL THROMBOPLSTIN TIME 32.8 SEC (22.0-34.0)
== END 2023-07-16 18:16 | disposition home or self-care (01) ==
LOC: DL.ED 15:45
DX: K91.840 Postprocedural hemorrhage of a digestive system organ or structure following a digestive system procedure (principal); I11.0 Hypertensive heart disease with heart failure; I50.9 Heart failure, unspecified; I25.10 Atherosclerotic heart disease of native coronary artery without angina pectoris; K21.9 Gastro-esophageal reflux disease without esophagitis; I25.2 Old myocardial infarction; Z86.73 Personal history of transient ischemic attack (TIA), and cerebral infarction without residual deficits; Z86.718 Personal history of other venous thrombosis and embolism; Z79.01 Long term (current) use of anticoagulants; Z79.82 Long term (current) use of aspirin; Z79.899 Other long term (current) drug therapy
CPT/HCPCS: 36415; 85025; 85610; 85730; 99283; J3490

== ENCOUNTER 2024-10-20 04:26 | Inpatient (IN) | payer MEDICARE, BC ==
[2024-10-20 04:47] LABS: BASOPHILS PERCENT AUTO 0.2 % (0.0-1.0); EOSINOPHILS PERCENT AUTO 0.2 % (1.0-3.0); HEMATOCRIT 38.3 % (40.0-54.0); HEMOGLOBIN 12.4 g/dL (14.0-18.0); LYMPHOCYTES PERCENT AUTO 5.8 % (20.5-50.1); MEAN CORPUSCULAR HGB CONC 32.4 g/dL (33.0-35.0); MEAN CORPUSCULAR VOLUME 83.3 fL (80-100); MONOCYTES PERCENT AUTO 10.4 % (2-8); NEUTROPHILS PERCENT AUTO 83.4 % (42.2-75.2); PLATELET COUNT,PLT 360 10^3/uL (150-450)
[2024-10-20 05:06] LABS: A/G RATIO 0.8; ALBUMIN 3.4 g/dL (3.4-5.0); ANION GAP 17.8 mEq/L (7-13); BUN/CREATININE RATIO 13.4 (No establ ref range); CALCIUM 9.7 mg/dL (8.5-10.1); CREATININE 1.79 mg/dL (0.70-1.30); EST CRCL DRUG DOSING (CG) 32.31 mL/min; MAGNESIUM 2.3 mg/dL (1.8-2.4); POTASSIUM,K 3.8 mmol/L (3.5-5.1); PROTEIN TOTAL,TP 7.6 g/dL (6.4-8.2)
[2024-10-20 05:12] LABS: LACTIC ACID 2.6 mmol/L (0.4-2.0)
[2024-10-20 07:09] LABS: APPEARANCE,URINE SLIGHTLY CLOUDY (CLEAR); BILIRUBIN,URINE SMALL (NEGATIVE); COLOR,URINE DARK YELLOW (YELLOW); GLUCOSE,URINE NEGATIVE (NEGATIVE); KETONES,URINE NEGATIVE (NEGATIVE); LEUKOCYTE ESTERASE,URINE NEGATIVE (NEGATIVE); NITRITE,URINE NEGATIVE (NEGATIVE); OCCULT BLOOD,URINE MODERATE (NEGATIVE); PH,URINE 5.5 (5.0-9.0); PROTEIN,URINE 30 (NEGATIVE)
[2024-10-20] MEDS: Sodium Chloride 0.9% 500 ML IV SCH (07:20)
[2024-10-20 07:23] LABS: BACTERIA,URINE FEW /HPF (0-FEW/HPF); CALCIUM OXALATE CRYSTALS,URINE FEW /HPF (NOT SEEN); EPITHELIAL CELLS,URINE FEW /HPF (NOT SEEN); FINE GRANULAR CASTS,URINE MODERATE /LPF (NOT SEEN); MUCUS,URINE FEW /LPF (NOT SEEN)
[2024-10-20 07:24] LABS: RBC,URINE 30-40 /HPF (0-5)
[2024-10-20] MEDS: Furosemide 40 MG/4 ML VIAL IVPUSH ONE (07:42)
[2024-10-20] MEDS ORDERED: HYDROmorphone 0.5 MG/0.5 ML Syringe IVPUSH PRN (09:06)
[2024-10-20] MEDS ORDERED: Naloxone 2 MG/2 ML Syringe IVPUSH PRN (09:06)
[2024-10-20] MEDS ORDERED: Ondansetron 4 MG/2 ML SDV IVPUSH PRN (09:06)
[2024-10-20] MEDS ORDERED: Albuterol/Ipratropium 3.0-0.5 MG/3 ML Neb Soln NEB PRN (09:06)
[2024-10-20] MEDS ORDERED: Polyethylene Glycol 3350 Powder 17 GM Packet PO PRN (09:06)
[2024-10-20] MEDS ORDERED: Docusate Sodium 100 MG Cap PO PRN (09:06)
[2024-10-20] MEDS ORDERED: Sennosides/Docusate Sodium 50-8.6 MG Tab PO PRN (09:06)
[2024-10-20] MEDS ORDERED: Ascorbic Acid 500 MG Tab PO PRN (09:37)
[2024-10-20] MEDS: Tamsulosin 0.4 MG Cap.ER PO SCH (10:26)
[2024-10-20] MEDS: oxyCODONE 5 MG Tab PO PRN (10:26)
[2024-10-20] MEDS: Sodium Chloride 0.9% 1,000 ML IV SCH (10:26)
[2024-10-20] MEDS: Aspirin 81 MG Tab.Chew PO SCH (10:26)
[2024-10-20] MEDS: Rivaroxaban 10 MG Tab PO SCH (10:26)
[2024-10-20] MEDS ORDERED: CRAMPS PO PRN ×2 (11:15→12:35)
[2024-10-20] MEDS ORDERED: Sodium Chloride 0.9% 10 ML Syringe FLUSH PRN (12:34)
[2024-10-20] MEDS: Morphine 30 MG Tab.ER PO SCH (13:56)
[2024-10-20] MEDS: Lactulose Soln 10 GM/15 ML 30 ML UD Cup PO ONE (16:59)
[2024-10-20] MEDS ORDERED: Sodium Chloride 0.65% Nasal Spray 45 ML Bottle NASBOTH PRN (17:08)
[2024-10-20] MEDS: Cholecalciferol (Vitamin D3) 25 MCG Tab PO SCH (20:26)
[2024-10-20] MEDS: Nystatin Topical Powder 60 GM Bottle TOP SCH (20:27)
[2024-10-20] MEDS: Docusate Sodium 100 MG Cap PO SCH (20:27)
[2024-10-21 06:03] LABS: BASOPHILS PERCENT AUTO 0.2 % (0.0-1.0); EOSINOPHILS PERCENT AUTO 2.3 % (1.0-3.0); HEMATOCRIT 30.2 % (40.0-54.0); HEMOGLOBIN 9.6 g/dL (14.0-18.0); LYMPHOCYTES PERCENT AUTO 12.3 % (20.5-50.1); MEAN CORPUSCULAR HEMOGLOBIN 27.2 pg (27.0-34.0); MEAN CORPUSCULAR HGB CONC 31.8 g/dL (33.0-35.0); MEAN CORPUSCULAR VOLUME 85.6 fL (80-100); MONOCYTES PERCENT AUTO 16.2 % (2-8); PLATELET COUNT,PLT 242 10^3/uL (150-450); RED BLOOD CELL COUNT 3.53 10^6/uL (4.6-6.2); WHITE BLOOD CELL COUNT,WBC 6.7 10^3/uL (5.0-10.0)
[2024-10-21 06:17] LABS: ANION GAP 13.1 mEq/L (7-13); CALCIUM 8.6 mg/dL (8.5-10.1); CREATININE 1.27 mg/dL (0.70-1.30); EST CRCL DRUG DOSING (CG) 45.54 mL/min; POTASSIUM,K 4.1 mmol/L (3.5-5.1)
[2024-10-21] MEDS: Acetaminophen 325 MG Tab PO PRN (07:29)
[2024-10-21] MEDS ORDERED: NIACINAMIDE PO SCH (09:00)
[2024-10-21] MEDS: Ezetimibe 10 MG Tab PO SCH (09:30)
[2024-10-21] MEDS: Patient's Own Medication 1 Each INH SCH (09:32)
[2024-10-21] MEDS: ZINC SULFATE PO SCH (17:45)
[2024-10-21] MEDS: Melatonin 3 MG Tab PO PRN (20:26)
[2024-10-22] MEDS: Temazepam 15 MG Cap PO PRN (01:07)
[2024-10-22] MEDS: Cyclobenzaprine 10 MG Tab PO PRN (01:08)
[2024-10-22] MEDS: Methylnaltrexone 12 MG/0.6 ML SDV SUBCUT ONE (10:41)
[2024-10-23] MEDS: Furosemide 40 MG/4 ML VIAL IVPUSH STA (09:52)
[2024-10-23 16:36] LABS: CALCIUM 8.9 mg/dL (8.5-10.1); CREATININE 1.29 mg/dL (0.70-1.30); EST CRCL DRUG DOSING (CG) 44.84 mL/min
[2024-10-24] MEDS: Albuterol 6.7 GM Inhaler INH PRN (04:59)
[2024-10-24 12:01] VITALS: BP 124/67; PULSE 83
== END 2024-10-24 13:15 | disposition home health service (06) | DRG 683 ==
LOC: DL.ED 04:26 → DL.MS 07:54 → OBSVTOIN 14:16
PROVIDERS: ADMIT Internal Medicine; ATTEND Internal Medicine
DX: R53.1 Weakness (principal); N17.9 Acute kidney failure, unspecified; D72.829 Elevated white blood cell count, unspecified; I42.9 Cardiomyopathy, unspecified; I25.10 Atherosclerotic heart disease of native coronary artery without angina pectoris; G47.33 Obstructive sleep apnea (adult) (pediatric); K21.9 Gastro-esophageal reflux disease without esophagitis; Z88.0 Allergy status to penicillin; I73.9 Peripheral vascular disease, unspecified; G62.9 Polyneuropathy, unspecified; Z66 Do not resuscitate; J44.9 Chronic obstructive pulmonary disease, unspecified; E78.00 Pure hypercholesterolemia, unspecified; D86.9 Sarcoidosis, unspecified; K59.00 Constipation, unspecified; R33.9 Retention of urine, unspecified; N40.1 Benign prostatic hyperplasia with lower urinary tract symptoms; I50.9 Heart failure, unspecified; I11.0 Hypertensive heart disease with heart failure; F41.8 Other specified anxiety disorders; Z88.1 Allergy status to other antibiotic agents; Z86.16 Personal history of COVID-19; Z95.1 Presence of aortocoronary bypass graft; Z86.711 Personal history of pulmonary embolism; I25.2 Old myocardial infarction; Z79.51 Long term (current) use of inhaled steroids; Z79.82 Long term (current) use of aspirin; Z79.891 Long term (current) use of opiate analgesic; Z79.899 Other long term (current) drug therapy
CPT/HCPCS: 36415; 51702; 71045; 80048; 80053; 81001; 82947; 83605; 83735; 83880; 84145; 84484; 85025; 87086; 87428-QW; 93005; 93010; 94618; 96360; 97161-GP; 97165-GO; 97530-GO; 99223; 99232; 99233; 99239; 99284; 99285-25; A9270-GY; G0378; J1940; J2212-GY; J3490; J7030; J7040

== ENCOUNTER 2024-10-30 15:11 | Emergency (ER) | payer MEDICARE, BC ==
[2024-10-30 16:39] LABS: BASOPHILS PERCENT AUTO 0.1 % (0.0-1.0); EOSINOPHILS PERCENT AUTO 1.4 % (1.0-3.0); HEMATOCRIT 30.3 % (40.0-54.0); HEMOGLOBIN 9.4 g/dL (14.0-18.0); LYMPHOCYTES PERCENT AUTO 11.6 % (20.5-50.1); MEAN CORPUSCULAR HEMOGLOBIN 27.8 pg (27.0-34.0); MEAN CORPUSCULAR VOLUME 89.6 fL (80-100); MONOCYTES PERCENT AUTO 12.2 % (2-8); NEUTROPHILS PERCENT AUTO 74.7 % (42.2-75.2); PLATELET COUNT,PLT 405 10^3/uL (150-450); RED BLOOD CELL COUNT 3.38 10^6/uL (4.6-6.2); WHITE BLOOD CELL COUNT,WBC 9.5 10^3/uL (5.0-10.0)
[2024-10-30] MEDS: Sodium Chloride 0.9% 1,000 ML IV ONE (17:15)
[2024-10-30 17:16] LABS: APPEARANCE,URINE TURBID (CLEAR); BILIRUBIN,URINE SMALL (NEGATIVE); COLOR,URINE AMBER (YELLOW); GLUCOSE,URINE NEGATIVE (NEGATIVE); KETONES,URINE TRACE (NEGATIVE); LEUKOCYTE ESTERASE,URINE TRACE (NEGATIVE); NITRITE,URINE NEGATIVE (NEGATIVE); OCCULT BLOOD,URINE LARGE (NEGATIVE); PH,URINE 5.5 (5.0-9.0); PROTEIN,URINE >=300 (NEGATIVE); UROBILINOGEN,URINE 0.2 mg/dL (0.2-1.0)
[2024-10-30 17:21] LABS: A/G RATIO 0.71; ALANINE AMINOTRANSFERASE,ALT 20 U/L (16-63); ALKALINE PHOSPHATASE 82 U/L (46-116); ANION GAP 11.3 mEq/L (7-13); ASPARTATE AMNIOTRANSFERASE,AST 17 U/L (15-37); BLOOD UREA NITROGEN,BUN 20 mg/dL (7-18); BUN/CREATININE RATIO 13.6 (No establ ref range); C-REACTIVE PROTEIN 4.49 ng/dL (<=0.50); CALCIUM 9.5 mg/dL (8.5-10.1); CARBON DIOXIDE,CO2 32 mmol/L (21-32); CHLORIDE,CL 101 mmol/L (98-107); CREATININE 1.47 mg/dL (0.70-1.30); ESTIMATED GFR 49 mL/min (>=60); GLUCOSE RANDOM 104 mg/dL (70-99); POTASSIUM,K 5.3 mmol/L (3.5-5.1); PROTEIN TOTAL,TP 7.2 g/dL (6.4-8.2); SODIUM,NA 139 mmol/L (136-145)
[2024-10-30 17:30] LABS: AMORPHOUS SEDIMENT,URINE FEW /HPF (NOT SEEN); BACTERIA,URINE FEW /HPF (0-FEW/HPF); CALCIUM OXALATE CRYSTALS,URINE FEW /HPF (NOT SEEN); EPITHELIAL CELLS,URINE NOT SEEN /HPF (NOT SEEN); MUCUS,URINE FEW /LPF (NOT SEEN); RBC,URINE SEMI-PACKED /HPF (0-5); WBC,URINE 0-5 /HPF (0-5/HPF)
[2024-10-30 18:04] VITALS: BP 117/83; PULSE 96
== END 2024-10-30 19:02 | disposition home or self-care (01) ==
LOC: DL.ED 15:11
DX: R31.9 Hematuria, unspecified (principal); E87.5 Hyperkalemia; I25.10 Atherosclerotic heart disease of native coronary artery without angina pectoris; I25.2 Old myocardial infarction; J44.9 Chronic obstructive pulmonary disease, unspecified; Z86.73 Personal history of transient ischemic attack (TIA), and cerebral infarction without residual deficits; Z88.0 Allergy status to penicillin; Z79.01 Long term (current) use of anticoagulants; Z79.51 Long term (current) use of inhaled steroids; Z79.82 Long term (current) use of aspirin; Z79.899 Other long term (current) drug therapy
CPT/HCPCS: 36415; 80053; 81001; 85025; 86140; 87086; 96360; 99284; J7030

== ENCOUNTER 2025-04-10 17:30 | Inpatient (IN) | payer MEDICARE, BC ==
[2025-04-10] MEDS ORDERED: Sodium Chloride 0.9% 10 ML Syringe FLUSH PRN (18:03)
[2025-04-10 18:13] LABS: BASOPHILS PERCENT AUTO 0.3 % (0.0-1.0); EOSINOPHILS PERCENT AUTO 0.3 % (1.0-3.0); HEMATOCRIT 34.7 % (40.0-54.0); HEMOGLOBIN 11.1 g/dL (14.0-18.0); LYMPHOCYTES PERCENT AUTO 14.3 % (20.5-50.1); MEAN CORPUSCULAR HEMOGLOBIN 29.3 pg (27.0-34.0); MEAN CORPUSCULAR VOLUME 91.6 fL (80-100); MONOCYTES PERCENT AUTO 10.9 % (2-8); NEUTROPHILS PERCENT AUTO 74.2 % (42.2-75.2); PLATELET COUNT,PLT 243 10^3/uL (150-450); RED BLOOD CELL COUNT 3.79 10^6/uL (4.6-6.2); WHITE BLOOD CELL COUNT,WBC 6.4 10^3/uL (5.0-10.0)
[2025-04-10 18:34] LABS: INR 1.1 (0.9-1.2); PROTHROMBIN TIME 11.1 SEC (9.0-12.0); PTT,PARTIAL THROMBOPLSTIN TIME 30.7 SEC (22.0-34.0)
[2025-04-10 18:41] LABS: LACTIC ACID 1.6 mmol/L (0.4-2.0)
[2025-04-10 18:47] LABS: A/G RATIO 0.7; ALBUMIN 3.6 g/dL (3.4-5.0); BILIRUBIN TOTAL 0.4 mg/dL (0.2-1.0); BUN/CREATININE RATIO 13.3 (No establ ref range); C-REACTIVE PROTEIN 3.05 ng/dL (<=0.50); CALCIUM 9.7 mg/dL (8.5-10.1); CREATININE 1.28 mg/dL (0.70-1.30); EST CRCL DRUG DOSING (CG) 46.76 mL/min; MAGNESIUM 2.4 mg/dL (1.8-2.4); PROTEIN TOTAL,TP 8.6 g/dL (6.4-8.2)
[2025-04-10] MEDS: Furosemide 40 MG/4 ML VIAL IV ONE (18:59)
[2025-04-10] MEDS: Morphine 30 MG Tab.ER PO ONE (19:25)
[2025-04-10] MEDS: Morphine 30 MG Tab.ER ONE (19:26)
[2025-04-10 19:32] LABS: APPEARANCE,URINE CLEAR (CLEAR); BILIRUBIN,URINE NEGATIVE (NEGATIVE); COLOR,URINE YELLOW (YELLOW); GLUCOSE,URINE NEGATIVE (NEGATIVE); KETONES,URINE NEGATIVE (NEGATIVE); LEUKOCYTE ESTERASE,URINE NEGATIVE (NEGATIVE); NITRITE,URINE NEGATIVE (NEGATIVE); OCCULT BLOOD,URINE NEGATIVE (NEGATIVE); PH,URINE 8.5 (5.0-9.0); PROTEIN,URINE NEGATIVE (NEGATIVE); UROBILINOGEN,URINE 0.2 mg/dL (0.2-1.0)
[2025-04-10 19:35] LABS: AMPHETAMINES,URINE NEGATIVE (NEGATIVE); BARBITURATES,URINE NEGATIVE (NEGATIVE); BENZODIAZEPINE,URINE NEGATIVE (NEGATIVE); MDMA (ECSTASY), URINE NEGATIVE (NEGATIVE); METHADONE,URINE NEGATIVE (NEGATIVE); METHAMPHETAMINES,URINE NEGATIVE (NEGATIVE); OPIATES,URINE POSITIVE (NEGATIVE); PHENCYCLIDINE,URINE NEGATIVE (NEGATIVE); TCA,URINE NEGATIVE (NEGATIVE)
[2025-04-10 19:36] LABS: OXYCODONE,URINE POSITIVE (NEGATIVE)
[2025-04-10] MEDS ORDERED: Magnesium Hydroxide 400 MG/5 ML Susp 30 ML Cup PO PRN (23:09)
[2025-04-10] MEDS ORDERED: Albuterol 6.7 GM Inhaler INH PRN (23:11)
[2025-04-10] MEDS ORDERED: Furosemide 20 MG Tab PO PRN (23:11)
[2025-04-10] MEDS: Acetaminophen 325 MG Tab PO SCH (23:25)
[2025-04-10] MEDS: fentaNYL 100 MCG/2 ML SDV IVPUSH ONE (23:27)
[2025-04-10] MEDS: fentaNYL 12 MCG/HR Transdermal Patch TRDERM SCH (23:28)
[2025-04-10] MEDS: Docusate Sodium 100 MG Cap PO SCH (23:31)
[2025-04-10] MEDS: Ibuprofen 200 MG Tab PO SCH (23:31)
[2025-04-10] MEDS: Polyethylene Glycol 3350 Powder 17 GM Packet PO SCH (23:35)
[2025-04-11] MEDS: Formoterol/Mometasone 200-5 MCG 8.8 GM Inhaler INH SCH (06:39)
[2025-04-11] MEDS: Tamsulosin 0.4 MG Cap.ER PO SCH (08:40)
[2025-04-11] MEDS: Aspirin 81 MG Tab.Chew PO SCH (08:40)
[2025-04-11] MEDS: Rivaroxaban 10 MG Tab PO SCH (08:41)
[2025-04-11] MEDS: Ezetimibe 10 MG Tab PO SCH (08:42)
[2025-04-11] MEDS: fentaNYL 100 MCG/2 ML SDV IVPUSH ONE (13:35)
[2025-04-11] MEDS: fentaNYL 25 MCG/HR Transdermal Patch TRDERM SCH (13:41)
[2025-04-11] MEDS: Check FENTANYL Patch TRDERM SCH (20:38)
[2025-04-11] MEDS ORDERED: Check FENTANYL Patch TRDERM SCH (21:00)
[2025-04-11] MEDS: Calcium Carbonate 500 MG Tab.Chew PO PRN (23:39)
[2025-04-11] MEDS: Pantoprazole 40 MG Vial IVPUSH ONE (23:39)
[2025-04-12 12:51] VITALS: BP 143/68; PULSE 74
== END 2025-04-12 13:15 | disposition home or self-care (01) | DRG 897 ==
LOC: DL.ED 17:30 → DL.MS 21:45
PROVIDERS: ADMIT Internal Medicine; ATTEND Internal Medicine
DX: F11.23 Opioid dependence with withdrawal (principal); J90 Pleural effusion, not elsewhere classified; J96.11 Chronic respiratory failure with hypoxia; I10 Essential (primary) hypertension; E78.00 Pure hypercholesterolemia, unspecified; J44.9 Chronic obstructive pulmonary disease, unspecified; G47.30 Sleep apnea, unspecified; R19.7 Diarrhea, unspecified; K21.9 Gastro-esophageal reflux disease without esophagitis; N40.0 Benign prostatic hyperplasia without lower urinary tract symptoms; T40.2X5A Adverse effect of other opioids, initial encounter; G62.9 Polyneuropathy, unspecified; F41.9 Anxiety disorder, unspecified; F32.A Depression, unspecified; G89.4 Chronic pain syndrome; D64.9 Anemia, unspecified; D86.9 Sarcoidosis, unspecified; I35.0 Nonrheumatic aortic (valve) stenosis; I25.10 Atherosclerotic heart disease of native coronary artery without angina pectoris; Z99.81 Dependence on supplemental oxygen; Z88.0 Allergy status to penicillin; Z79.82 Long term (current) use of aspirin; Z79.51 Long term (current) use of inhaled steroids; Z79.899 Other long term (current) drug therapy; Z79.01 Long term (current) use of anticoagulants; I25.2 Old myocardial infarction; Z86.711 Personal history of pulmonary embolism; Z86.73 Personal history of transient ischemic attack (TIA), and cerebral infarction without residual deficits; Z95.5 Presence of coronary angioplasty implant and graft; Z95.1 Presence of aortocoronary bypass graft
CPT/HCPCS: 36415; 71045; 80053; 80305; 81003; 83605; 83735; 83880; 84484; 85025; 85610; 85730; 86140; 87040; 93005; A9270; J1938; 94664; 99223; 99233; 99239; J2470; J3010

== ENCOUNTER 2025-09-29 14:19 | Emergency (ER) | payer MEDICARE, BC ==
[2025-09-29] MEDS: Take Home: Doxycycline 100 MG Cap, 4 Cap Pack PO ONE (15:06)
[2025-09-29 15:56] VITALS: BP 144/56; PULSE 71
== END 2025-09-29 15:09 | disposition home or self-care (01) ==
LOC: DL.ED 14:19
DX: L03.115 Cellulitis of right lower limb (principal); I10 Essential (primary) hypertension; E78.00 Pure hypercholesterolemia, unspecified; Z88.0 Allergy status to penicillin; Z88.8 Allergy status to other drugs, medicaments and biological substances; Z79.2 Long term (current) use of antibiotics; Z79.82 Long term (current) use of aspirin; Z79.899 Other long term (current) drug therapy
CPT/HCPCS: 99283; 99284; A9270